=== PATIENT | male | born 1960 | race Caucasian/White ===

== ENCOUNTER 2020-08-01 11:20 | Outpatient (CLI) | payer MEDICAID | END 2020-08-01 23:59 | disposition home or self-care (01) | LOC: COV 11:20 | PROVIDERS: ATTEND Specialist | DX: Z01.812 Encounter for preprocedural laboratory examination (principal); M16.11 Unilateral primary osteoarthritis, right hip; Z20.822 Contact with and (suspected) exposure to COVID-19 ==